=== PATIENT | female | born 1990 | race Caucasian/White ===

== ENCOUNTER 2017-08-20 14:13 | Outpatient (CLI) | payer OTHER ==
--- NOTE | 2017-08-20 16:20 | Non Stress Test Report ---
Non Stress Test Datetime Report Generated by CPN: 08/20/2017 16:20 DEMOGRAPHIC EGA NST: 33.4 INDICATION Indication for Study: Other Indication for Study (NST) Other: sent from office VITAL SIGNS Pulse - NST: 100 RESP - NST: 12 NBPSYS NST: 126 NBPDIA NST: 65 MONITORING Monitor Explained: Monitor Explained; Test Explained; Patient Verbalized Understanding Time on Monitor: 08/20/2017 14:27 Time off Monitor: 08/20/2017 15:59 NST Duration: 92 NST INTERVENTIONS NST Interventions: PO Hydration; Reposition Patient Physician Notified NST: Dr. Dunlap BABY A: [id number] BABY A Movement : Present Contraction Frequency : 0 FHR Baseline : 135 Accelerations : 10X10 Decelerations : None Variability : Moderate 6-25bpm NST Review: Meets Criteria for Reactive NST NST Review and Verified By : KRISH Pompa NST Results: Reactive NST REPORT Report Trigger: Send Report
== END 2017-08-20 16:07 | disposition home or self-care (01) ==
LOC: LC 14:13
PROVIDERS: ATTEND Obstetrics & Gynecology
PROC: 4A1HXCZ Monitoring of Products of Conception, Cardiac Rate, External Approach (ICD-10-PCS; principal; 2017-08-20)
DX: Z34.93 Encounter for supervision of normal pregnancy, unspecified, third trimester (principal)
CPT/HCPCS: 59025

== ENCOUNTER 2017-09-21 09:01 | Outpatient (CLI) | payer OTHER ==
[2017-09-21 10:24] LABS: ABSOLUTE EOSINOPHILS # (AUTO) 0.1 10^3/uL (0.0-0.6); ABSOLUTE LYMPHOCYTES (AUTO) 1.7 10^3/uL (0.5-4.7); ABSOLUTE MONOCYTES (AUTO) 0.6 10^3/uL (0.1-1.4); ABSOLUTE NEUT (AUTO) 5.7 10^3/uL (1.7-8.2); BASOPHILS % (AUTO) 0.3 % (0-2); EOSINOPHILS % (AUTO) 0.6 % (0-6); HEMATOCRIT 38.2 % (36.0-47.0); HEMOGLOBIN 12.9 g/dL (12.0-15.5); LYMPHOCYTES % (AUTO) 21.2 % (13-45); MEAN CORPUSCULAR HEMOGLOBIN 30.6 pg (27.0-33.4); MEAN CORPUSCULAR HGB CONC 33.9 g/dL (32.0-36.0); MEAN CORPUSCULAR VOLUME 90 fl (80-97); PLATELET COUNT 151 10^3/uL (150-450); RED BLOOD COUNT 4.23 10^6/uL (3.72-5.28); RED CELL DISTRIBUTION WIDTH 13.5 % (11.5-14.0); SEGMENTED NEUTROPHILS % (AUTO) 70.9 % (42-78); TOTAL CELLS COUNTED % (AUTO) 100 %
[2017-09-21 10:32] LABS: ALANINE AMINOTRANSFERASE 24 U/L (9-52); ALBUMIN 3.5 g/dL (3.5-5.0); ALKALINE PHOSPHATASE 117 U/L (38-126); ANION GAP 9 (5-19); ASPARTATE AMINO TRANSFERASE 21 U/L (14-36); BILIRUBIN,DIRECT 0.1 mg/dL (0.0-0.4); BILIRUBIN,TOTAL 0.2 mg/dL (0.2-1.3); BLOOD UREA NITROGEN 9 mg/dL (7-20); CALCIUM 9.6 mg/dL (8.4-10.2); CARBON DIOXIDE 27 mmol/L (22-30); CHLORIDE 102 mmol/L (98-107); GLUCOSE 120 mg/dL (75-110); LDH 397 U/L (313-618); POTASSIUM 3.8 mmol/L (3.6-5.0); SODIUM 138.1 mmol/L (137-145); TOTAL PROTEIN 6.1 g/dL (6.3-8.2); URIC ACID 4.1 mg/dL (2.5-6.2)
[2017-09-21 10:39] LABS: APPEARANCE,URINE CLEAR; BILIRUBIN,URINE NEGATIVE (NEGATIVE); COLOR,URINE STRAW; GLUCOSE, URINE NEGATIVE (NEGATIVE); KETONES,URINE NEGATIVE (NEGATIVE); LEUKOCYTE ESTERASE,URINE NEGATIVE (NEGATIVE); NITRITE,URINE NEGATIVE (NEGATIVE); PROTEIN,URINE NEGATIVE (NEGATIVE); URINE SPECIFIC GRAVITY 1.003; UROBILINOGEN,URINE NEGATIVE mg/dL (<2.0)
--- NOTE | 2017-09-21 10:46 | Non Stress Test Report ---
Non Stress Test Datetime Report Generated by CPN: 09/21/2017 10:46 DEMOGRAPHIC EGA NST: 38.1 INDICATION Indication for Study: Gestational Hypertension; Ordered by Provider Indication for Study (NST) Other: VS PRE-ECLAMPSIA VITAL SIGNS Temperature - NST: 98.1 Pulse - NST: 78 NBPSYS NST: 115 NBPDIA NST: 68 MONITORING Monitor Explained: Monitor Explained; Test Explained; Patient Verbalized Understanding Time on Monitor: 09/21/2017 09:09 Time off Monitor: 09/21/2017 09:31 NST Duration: 22 NST INTERVENTIONS NST Interventions: PO Hydration; Reposition Patient Physician Notified NST: J. Valladares, CNM BABY A: [id number] BABY A Contraction Frequency : NONE FHR Baseline : 135 Accelerations : 15X15 Decelerations : None Variability : Moderate 6-25bpm NST Review: Meets Criteria for Reactive NST NST Review and Verified By : Adalberto Bustamante, RN NST Results: Reactive NST REPORT Report Trigger: Send Report
[2017-09-21 11:06] LABS: URINE AMPHETAMINES SCREEN NEGATIVE; URINE BARBITURATES SCREEN NEGATIVE; URINE BENZODIAZEPINES SCREEN NEGATIVE; URINE COCAINE SCREEN NEGATIVE; URINE MARIJUANA (THC) SCREEN NEGATIVE; URINE METHADONE SCREEN NEGATIVE; URINE PHENCYCLIDINE SCREEN NEGATIVE
[2017-09-21 11:11] LABS: UR PRO/CREAT RATIO RESULT 0.7 mg/mg (0.0-0.2); URINE CREATININE 21.1 mg/dL (16-327); URINE PROTEIN 15.4 mg/dL (<12)
[2017-09-22 13:42] LABS: URINE PROTEIN 16.8 mg/dL (<12)
[2017-09-22 13:44] LABS: 24 HOUR URINE PROTEIN RESULT 376 mg/day (42-225)
== END 2017-09-21 11:27 | disposition home or self-care (01) ==
LOC: LC 09:01
PROVIDERS: ATTEND Obstetrics & Gynecology
PROC: 4A1HXCZ Monitoring of Products of Conception, Cardiac Rate, External Approach (ICD-10-PCS; principal; 2017-09-21)
DX: O13.3 Gestational [pregnancy-induced] hypertension without significant proteinuria, third trimester (principal); Z3A.38 38 weeks gestation of pregnancy
CPT/HCPCS: 36415; 59025; 80053; 80307; 81001; 82570; 83615; 84156; 84550; 85025

== ENCOUNTER 2017-09-29 14:47 | Outpatient (CLI) | payer OTHER ==
--- NOTE | 2017-09-29 15:47 | Non Stress Test Report ---
Non Stress Test Datetime Report Generated by CPN: 09/29/2017 15:46 DEMOGRAPHIC EGA NST: 39.2 INDICATION Indication for Study: Ordered by Provider MONITORING Monitor Explained: Monitor Explained; Test Explained; Patient Verbalized Understanding Time on Monitor: 09/29/2017 15:02 NST INTERVENTIONS NST Interventions: None Physician Notified NST: C Walden, CNM BABY A: [id number] BABY A Movement : Present Contraction Frequency : 0 FHR Baseline : 130 Accelerations : 15X15 Decelerations : None Variability : Moderate 6-25bpm NST Review: Meets Criteria for Reactive NST NST Review and Verified By : Laura Tim RNC NST Results: Reactive NST REPORT Report Trigger: Send Report
== END 2017-09-29 15:46 | disposition home or self-care (01) ==
LOC: LC 14:47
PROVIDERS: ATTEND Obstetrics & Gynecology
PROC: 4A1HXCZ Monitoring of Products of Conception, Cardiac Rate, External Approach (ICD-10-PCS; principal; 2017-09-29)
DX: Z34.93 Encounter for supervision of normal pregnancy, unspecified, third trimester (principal)
CPT/HCPCS: 59025

== ENCOUNTER 2017-09-29 19:35 | Inpatient (IN) | payer OTHER ==
[2017-09-29 20:01] LABS: APPEARANCE,URINE SLIGHTLY-CLOUDY; BILIRUBIN,URINE NEGATIVE (NEGATIVE); COLOR,URINE YELLOW; GLUCOSE, URINE NEGATIVE (NEGATIVE); KETONES,URINE NEGATIVE (NEGATIVE); LEUKOCYTE ESTERASE,URINE NEGATIVE (NEGATIVE); NITRITE,URINE NEGATIVE (NEGATIVE); PROTEIN,URINE NEGATIVE (NEGATIVE); URINE SPECIFIC GRAVITY 1.029; UROBILINOGEN,URINE NEGATIVE mg/dL (<2.0)
[2017-09-29] MEDS ORDERED: DINOPROSTONE 10 MG VAGINAL INSERT.SR PV ONE (20:22)
[2017-09-29 20:23] LABS: URINE AMPHETAMINES SCREEN NEGATIVE; URINE BARBITURATES SCREEN NEGATIVE; URINE BENZODIAZEPINES SCREEN NEGATIVE; URINE COCAINE SCREEN NEGATIVE; URINE MARIJUANA (THC) SCREEN NEGATIVE; URINE METHADONE SCREEN NEGATIVE; URINE PHENCYCLIDINE SCREEN NEGATIVE
[2017-09-29 20:29] LABS: ABSOLUTE LYMPHOCYTES (AUTO) 2.6 10^3/uL (0.5-4.7); ABSOLUTE MONOCYTES (AUTO) 0.8 10^3/uL (0.1-1.4); ABSOLUTE NEUT (AUTO) 6.9 10^3/uL (1.7-8.2); BASOPHILS % (AUTO) 0.3 % (0-2); EOSINOPHILS % (AUTO) 0.5 % (0-6); HEMATOCRIT 36.9 % (36.0-47.0); HEMOGLOBIN 12.9 g/dL (12.0-15.5); LYMPHOCYTES % (AUTO) 24.7 % (13-45); MEAN CORPUSCULAR VOLUME 89 fl (80-97); PLATELET COUNT 169 10^3/uL (150-450); RED BLOOD COUNT 4.17 10^6/uL (3.72-5.28); RED CELL DISTRIBUTION WIDTH 13.2 % (11.5-14.0); SEGMENTED NEUTROPHILS % (AUTO) 66.5 % (42-78); TOTAL CELLS COUNTED % (AUTO) 100 %; WHITE BLOOD COUNT 10.3 10^3/uL (4.0-10.5)
[2017-09-29] MEDS ORDERED: DINOPROSTONE 10 MG VAGINAL INSERT.SR ONE (20:51)
[2017-09-30] MEDS ORDERED: OXYTOCIN/NORMAL SALINE 20 UNIT/1,000 ML RTUINJ IV PRN ×2 (08:36→17:10)
[2017-09-30] MEDS ORDERED: MISOPROSTOL 0.2 MG TABLET ONE (09:21)
[2017-09-30] MEDS ORDERED: LIDOCAINE 1% INJ-PF (10 MG/ML) 30 ML SDV ONE (09:21)
[2017-09-30] MEDS ORDERED: OXYTOCIN/NORMAL SALINE 20 UNIT/1,000 ML RTUINJ ONE (09:21)
--- NOTE | 2017-09-30 10:36 | Admission Physical ---
Datetime Report Generated by CPN: 09/30/2017 10:36 CURRENT ADMISSION Hx Assessment: The History has been Reviewed and is Current Chief Complaint: Scheduled Induction of Labor Indication for Induction: Gestational HTN Admit Impression : Term, Intrauterine Admit Plan: Admit to Unit; Initiate Labor Induction Protocol ALLERGIES Medication Allergies: No Medication Allergies: No Known Drug Allergies (09/29/2017) Latex: No Latex Allergies Food Allergies: none OBSTETRICAL HISTORY EDC: 10/04/2017 00:00 : 1 Para: 0 Gestational Diabetes: No Rh Sensitization: No Incompetent Cervix: No OSBALDO: No Infertility: No ART Treatment: No Uterine Anomaly: No IUGR: No Hx Previous C/S: No Macrosomia: No Hx Loss/Stillborn: No PIH: No Hx : No Placenta Previa/Abruption: No Depression/PP Depression: No PTL/PROM: No Post Hemorrhage: No Current Procedures: Ultrasound; NST Obstetrical History Comments: g1- current IOL for GHTN SEE RECORDS Alcohol: No Marijuana : No Cocaine: No Other Illicit Drugs: No Cigarettes: Never Smoker. [id number] MEDICAL HISTORY Diabetes: No Blood Transfusion: No Pulmonary Disease (Asthma, TB): No Breast Disease: No Hypertension: Yes Reporter Anchor Surgery: No Heart Disease: No Hosp/Surgery: No Autoimmune Disorder: No Anesthetic Complications: No Kidney Disease: No Abnormal Pap Smear: No Neuro/Epilepsy: No Psychiatric Disorders: No Other Medical Diseases: No Hepatitis/Liver Disease: No Significant Family History: No Varicosities/Phlebitis: No Trauma/Violence : No Thyroid Dysfunction: No INFECTIOUS HISTORY Gonorrhea: No Genital Herpes: No Chlamydia: No Tuberculosis: No Syphilis: No Hepatitis: No HIV/AIDS Exposure: No Rash or Viral Illness: No HPV: No PHYSICAL EXAM General: Normal HEENT: Deferred Neurologic: Deferred Thyroid: Normal Heart: Normal Lungs: Normal Breast: Deferred Back: Normal Abdomen: Normal Genitourinary Exam: Normal Extremities: Normal DTRs: Normal Pelvic Type: Adequate Vital Signs: Reviewed FETUS A EGA: 39.3 Monitoring: External US FHR- Baseline: 150 Variability: Moderate 6-25bpm Accelerations: 15X15 Decelerations: None Admit Comment: Admit to LD @ 39.1 for IOL Gestational hypertension, closed on admission, cevidil placed PLANS FOR LABOR AND DELIVERY Labor and Delivery: None Pain Management: Medications; Epidural Feeding Preference: Breast Circumcision: Yes INFORMED CONSENT Assignment: Ismael Dunlap MD Signature: with User ID: [email or web address] : with User ID: [email or web address]
--- NOTE | 2017-09-30 10:38 | L&D Progress Notes ---
PROGRESS NOTES Datetime Report Generated by CPN: 09/30/2017 10:38 PROGRESS NOTE Impression: Reassuring Heart Rate Plan: Induction Vital Signs : Reviewed; Within Normal Limits Comment: Cat 1 strip, irregular uc's, BP normal, POC discussed FETUS A : 39.1 SIGNATURE SIGNATURE: 10,[id number];14,[id number];13,[id number] SIGNATURE: ,[id number];14,[id number] SIGNATURE: [id number] SIGNATURE: [id number] SIGNATURE: 14,[id number] Assignment: Ismael Dunlap MD Signature: with User ID: [email or web address] : with User ID: [email or web address]
--- NOTE | 2017-09-30 13:28 | L&D Progress Notes ---
PROGRESS NOTES Datetime Report Generated by CPN: 09/30/2017 13:27 PROGRESS NOTE Impression: Reassuring Heart Rate Plan: Continue Present Management; Induction Informed Consent Obtained: Vaginal Delivery Vital Signs : Reviewed; Within Normal Limits Comment: Cat 1 strip, irregular uc's, comfortable MEMBRANES Membranes: Intact FETUS A FHR - Baseline: 130 Monitoring: External US Variability: Moderate 6-25bpm Accelerations: 15X15 Decelerations: None FETUS C SIGNATURE: [id number];14,[id number];10,[id number] Assignment: Ismael Dunlap MD Signature: with User ID: [email or web address] : with User ID: [email or web address]
--- NOTE | 2017-09-30 16:31 | L&D Progress Notes ---
PROGRESS NOTES Datetime Report Generated by CPN: 09/30/2017 16:31 PROGRESS NOTE Impression: Reassuring Heart Rate Plan: Continue Present Management; Induction Informed Consent Obtained: Vaginal Delivery Vital Signs : Reviewed; Within Normal Limits Comment: Cat 1 strip, rare late with moderate variability, resolved, irreg uc's, pt starting to feel uc's, Dr. Dunlap on unit and will re-evaluate pt later in the afternoon MEMBRANES Membranes: Intact FETUS A FHR - Baseline: 160 Monitoring: External US Variability: Moderate 6-25bpm Accelerations: 15X15 Decelerations: None FETUS C SIGNATURE: [id number];14,[id number];13,[id number] Assignment: Ismael Dunlap MD Signature: with User ID: [email or web address] : with User ID: [email or web address]
[2017-09-30] MEDS ORDERED: DINOPROSTONE 10 MG VAGINAL INSERT.SR PV PRN (17:10)
[2017-09-30] MEDS ORDERED: DINOPROSTONE 10 MG VAGINAL INSERT.SR ONE (19:34)
[2017-09-30] MEDS ORDERED: RINGERS SOLUTION,LACTATED 1,000 ML IV PRN (21:49)
--- NOTE | 2017-09-30 22:45 | L&D Progress Notes ---
PROGRESS NOTES Datetime Report Generated by CPN: 09/30/2017 22:45 PROGRESS NOTE Impression Other: small progress today Plan: Cervical Ripening Informed Consent Obtained: Risks, Benefits and Alternatives Discussed Informed Consent Obtained- Other: discussed options Comment: She would like to ripen the cervix and try the pitocin again in the am. Poly diagnosed by single pocket. VAGINAL EXAM Dilatation: 2 Effacement: 50 Station: -2 FETUS A FHR - Baseline: 120 Variability: Moderate 6-25bpm FHR Category: Category I FETUS C SIGNATURE: [id number];14,[id number];10,[id number] Signature: with User ID: [email or web address]
--- NOTE | 2017-10-01 07:04 | DISCHARGE SUMMARY E ---
Discharge Summary NAME: GERMAIN GREEN : 1990 AGE: 27Y ADMITTED: 09/29/2017 DISCHARGED: 10/01/2017 FINAL DIAGNOSIS: . HISTORY: The patient is a 27-year-old female, 1. She is at 39 weeks admitted for induction of labor for some sporadic elevated blood pressures and polyhydramnios by an 8 cm pocket of fluid on ultrasound. Her GENE is 15 overall. The patient was admitted and underwent Cervidil and Pitocin and had very little change. The Cervidil was repeated. Now after midnight, she and her wished to go home. We discussed continuing the induction and trying the Pitocin again in the morning; however, she is frustrated with the induction process and does not wish to continue it. Her blood pressure looks good. Baby looks good with a reactive NST. She is having only occasional contractions with the Cervidil. After discussing all options, she feels the best course of action is to go home and await natural labor. This appears to be a safe option as her blood pressure is fine and the baby is reactive. Her condition is stable. Her due date is this Thursday. ASSESSMENT: at term. We will stop the Cervidil, allow reactive tracing afterwards, ensure blood pressure looks fine, and discharge her to home with followup this Thursday in the office with an NST. We have given her labor precautions. We also instructed her on kick counts. DICTATING PHYSICIAN: OJCELYN VARGAS M.D. [id number] PHY#: [id number] ID: [id number] JOB#: [id number] ACCT: [id number] cc:JOCELYN VARGAS M.D. FELY SALMON M.D. >
== END 2017-10-01 02:03 | disposition home or self-care (01) | DRG 782 ==
LOC: LR 19:35
PROVIDERS: ADMIT Obstetrics & Gynecology; ATTEND Specialist
PROC: 3E0P7VZ Introduction of Hormone into Female Reproductive, Via Natural or Artificial Opening (ICD-10-PCS; principal; 2017-09-29)
PROC: 3E033VJ Introduction of Other Hormone into Peripheral Vein, Percutaneous Approach (ICD-10-PCS; 2017-09-29)
PROC: 4A1HXCZ Monitoring of Products of Conception, Cardiac Rate, External Approach (ICD-10-PCS; 2017-09-29)
DX: O13.3 Gestational [pregnancy-induced] hypertension without significant proteinuria, third trimester (principal); O40.3XX0 Polyhydramnios, third trimester, not applicable or unspecified; O61.0 Failed medical induction of labor; Z3A.39 39 weeks gestation of pregnancy
CPT/HCPCS: 36415; 80307; 81005; 85025; 86592; 86850; 86900; 86901; J2590; J3490

== ENCOUNTER 2017-10-01 13:47 | Inpatient (IN) | payer OTHER ==
[2017-10-01] MEDS ORDERED: RINGERS SOLUTION,LACTATED 300 ML IV ONE (14:00)
[2017-10-01] MEDS ORDERED: RINGERS SOLUTION,LACTATED 1,000 ML IV PRN (14:00)
[2017-10-01] MEDS ORDERED: OXYTOCIN/NORMAL SALINE 20 UNIT/1,000 ML RTUINJ IV PRN (14:00)
[2017-10-01 14:42] LABS: ABSOLUTE EOSINOPHILS # (AUTO) 0.1 10^3/uL (0.0-0.6); ABSOLUTE LYMPHOCYTES (AUTO) 1.9 10^3/uL (0.5-4.7); ABSOLUTE MONOCYTES (AUTO) 0.8 10^3/uL (0.1-1.4); BASOPHILS % (AUTO) 0.3 % (0-2); EOSINOPHILS % (AUTO) 0.6 % (0-6); HEMATOCRIT 37.8 % (36.0-47.0); HEMOGLOBIN 13.1 g/dL (12.0-15.5); LYMPHOCYTES % (AUTO) 22.1 % (13-45); MEAN CORPUSCULAR HEMOGLOBIN 30.6 pg (27.0-33.4); MEAN CORPUSCULAR HGB CONC 34.5 g/dL (32.0-36.0); MEAN CORPUSCULAR VOLUME 89 fl (80-97); MONOCYTES % (AUTO) 9.4 % (3-13); PLATELET COUNT 160 10^3/uL (150-450); RED BLOOD COUNT 4.26 10^6/uL (3.72-5.28); RED CELL DISTRIBUTION WIDTH 13.4 % (11.5-14.0); SEGMENTED NEUTROPHILS % (AUTO) 67.6 % (42-78); TOTAL CELLS COUNTED % (AUTO) 100 %; WHITE BLOOD COUNT 8.8 10^3/uL (4.0-10.5)
[2017-10-01 14:44] LABS: APPEARANCE,URINE SLIGHTLY-CLOUDY; BILIRUBIN,URINE NEGATIVE (NEGATIVE); COLOR,URINE YELLOW; GLUCOSE, URINE NEGATIVE (NEGATIVE); KETONES,URINE NEGATIVE (NEGATIVE); LEUKOCYTE ESTERASE,URINE SMALL (NEGATIVE); NITRITE,URINE NEGATIVE (NEGATIVE); PROTEIN,URINE NEGATIVE (NEGATIVE); URINE SPECIFIC GRAVITY 1.017; UROBILINOGEN,URINE NEGATIVE mg/dL (<2.0)
[2017-10-01] MEDS ORDERED: MISOPROSTOL 0.2 MG TABLET ONE (14:52)
[2017-10-01] MEDS ORDERED: LIDOCAINE 1% INJ-PF (10 MG/ML) 30 ML SDV ONE (14:53)
[2017-10-01] MEDS ORDERED: OXYTOCIN/NORMAL SALINE 20 UNIT/1,000 ML RTUINJ ONE (14:53)
--- NOTE | 2017-10-01 14:54 | L&D Progress Notes ---
PROGRESS NOTES Datetime Report Generated by CPN: 10/01/2017 14:53 PROGRESS NOTE Impression: Reassuring Heart Rate Procedures- Other: Cooks cath placed Plan: Continue Present Management Informed Consent Obtained: Induction of Labor Vital Signs : Reviewed Comment: cooks cath placed without difficulty, 80 ml fluid in both balloons. VAGINAL EXAM Dilatation: 3 Effacement: 50 Station: -1 Contractions: irregular MEMBRANES Membranes: Intact FETUS A FHR - Baseline: 145 Monitoring: External US Variability: Moderate 6-25bpm Accelerations: 15X15 Decelerations: None FHR Category: Category I SIGNATURE SIGNATURE: 10,[id number];14,[id number];13,[id number] Assignment: Nayeli Magana MD Signature: with User ID: [email or web address] : with User ID: [email or web address]
[2017-10-01 14:56] LABS: ALANINE AMINOTRANSFERASE 28 U/L (9-52); ALBUMIN 3.4 g/dL (3.5-5.0); ALKALINE PHOSPHATASE 139 U/L (38-126); ANION GAP 8 (5-19); ASPARTATE AMINO TRANSFERASE 23 U/L (14-36); BILIRUBIN,DIRECT 0.2 mg/dL (0.0-0.4); BILIRUBIN,TOTAL 0.5 mg/dL (0.2-1.3); BLOOD UREA NITROGEN 10 mg/dL (7-20); CALCIUM 9.5 mg/dL (8.4-10.2); CARBON DIOXIDE 24 mmol/L (22-30); CHLORIDE 106 mmol/L (98-107); GLUCOSE 80 mg/dL (75-110); LDH 399 U/L (313-618); SODIUM 138.4 mmol/L (137-145); TOTAL PROTEIN 6.2 g/dL (6.3-8.2); URIC ACID 4.3 mg/dL (2.5-6.2)
--- NOTE | 2017-10-01 14:56 | Admission Physical ---
Datetime Report Generated by CPN: 10/01/2017 14:56 CURRENT ADMISSION Hx Assessment: The History has been Reviewed and is Current Chief Complaint: Scheduled Induction of Labor Indication for Induction: Eclampsia-Mild; Polyhydramnios Admit Impression : Term, Intrauterine ; No Active Labor; Intact Membranes; Induction of Labor Admit Plan: Admit to Unit; Initiate Labor Induction Protocol ALLERGIES Medication Allergies: No Medication Allergies: No Known Drug Allergies (10/01/2017) Latex: No Latex Allergies Food Allergies: none OBSTETRICAL HISTORY EDC: 10/04/2017 00:00 : 1 Para: 0 Gestational Diabetes: No Rh Sensitization: No Incompetent Cervix: No OSBALDO: No Infertility: No ART Treatment: No Uterine Anomaly: No IUGR: No Hx Previous C/S: No Macrosomia: No Hx Loss/Stillborn: No PIH: No Hx : No Placenta Previa/Abruption: No Depression/PP Depression: No PTL/PROM: No Post Hemorrhage: No Current Procedures: Ultrasound; NST Obstetrical History Comments: g1- current IOL for GHTN SEE RECORDS Alcohol: No Marijuana : No Cocaine: No Other Illicit Drugs: No Cigarettes: Never Smoker. [id number] MEDICAL HISTORY Diabetes: No Blood Transfusion: No Pulmonary Disease (Asthma, TB): No Breast Disease: No Hypertension: Yes Software Qa Manager Surgery: No Heart Disease: No Hosp/Surgery: No Autoimmune Disorder: No Anesthetic Complications: No Kidney Disease: No Abnormal Pap Smear: No Neuro/Epilepsy: No Psychiatric Disorders: No Other Medical Diseases: No Hepatitis/Liver Disease: No Significant Family History: No Varicosities/Phlebitis: No Trauma/Violence : No Thyroid Dysfunction: No INFECTIOUS HISTORY Gonorrhea: No Genital Herpes: No Chlamydia: No Tuberculosis: No Syphilis: No Hepatitis: No HIV/AIDS Exposure: No Rash or Viral Illness: No HPV: No PHYSICAL EXAM General: Normal HEENT: Normal Neurologic: Normal Thyroid: Deferred Heart: Normal Lungs: Normal Breast: Deferred Back: Normal Abdomen: Normal Genitourinary Exam: Normal Extremities: Normal DTRs: Normal Pelvic Type: Adequate Vital Signs: Reviewed VAGINAL EXAM Dilatation: 3 Effacement: 50 Station: -1 Contraction Comments: irregular MEMBRANES Membranes: Intact FETUS A EGA: 39.3 Monitoring: External US FHR- Baseline: 145 Variability: Moderate 6-25bpm Accelerations: 15X15 Decelerations: None FHR Category: Category I Estimated Weight (gm): 3318 Presentation: Vertex Admit Comment: 27yo at 39+4ega presents for IOL for GHTN vs PreE (24 hr UTP was greater than 300mg) and polyhydramnios (based on SDP greater than 8cm). GBS negative. She was admitted for IOL on 09/29 and given cervidil over night and then meds during the day but cvx obtained diltation of 2cm. Cooks catheter never placed and patient was given 2nd cervidil. Pt desires to leave at approx 2am because she needed a break. She was discharge by the prior provider. Patient returned today and desires to proced with IOL with pitocin and Cooks catheter. Anticipate . EFW 3318 (7#6oz on 09/17) PLANS FOR LABOR AND DELIVERY Labor and Delivery: None Pain Management: Medications; Epidural Feeding Preference: Breast Circumcision: Yes INFORMED CONSENT Informed Consent Obtained: Induction of Labor Informed Consent Obtained- Other: discussed options Assignment: Ismael Dunlap MD Signature: with User ID: Reagan : with User ID: Reagan
[2017-10-01 15:02] LABS: URINE AMPHETAMINES SCREEN NEGATIVE; URINE BARBITURATES SCREEN NEGATIVE; URINE BENZODIAZEPINES SCREEN NEGATIVE; URINE COCAINE SCREEN NEGATIVE; URINE MARIJUANA (THC) SCREEN NEGATIVE; URINE METHADONE SCREEN NEGATIVE; URINE PHENCYCLIDINE SCREEN NEGATIVE
--- NOTE | 2017-10-01 18:11 | L&D Progress Notes ---
PROGRESS NOTES Datetime Report Generated by CPN: 10/01/2017 18:10 PROGRESS NOTE Impression: Normal Progression of Labor Procedures: Sterile Vag Exam Procedures- Other: Cookcaroline removed Plan: Continue Present Management; Induction Informed Consent Obtained: Vaginal Delivery; Induction of Labor; Risks, Benefits and Alternatives Discussed Vital Signs : Reviewed Comment: IOL for GHTN vs PreE but with 24 hour UTP greater than 300mg, polyhydramnios. Mild range BPs noted x 2 yesterday during IOL process. BPs wnl since admission today for IOL. Cvx evaluation done with cookcaroline completely out of cervix and in vagina. Cvx 5-6/75/-2. Will continue with peanut ball for now. Re-eval in 2-3 hours and assess for AROM. Attempt to get pattern improved with contractions and increase pitocin. Reassuring FWB. Pt doing well. MEMBRANES Membranes: Intact FETUS A Monitoring: External US FETUS C SIGNATURE: [id number] SIGNATURE: [id number] Signature: with User ID: [email or web address]
[2017-10-01] MEDS ORDERED: FENTANYL CITRATE INJ/PF 100 MCG/2 ML AMPUL ONE (22:15)
[2017-10-01] MEDS ORDERED: EPHEDRINE SULFATE INJ 50 MG/1 ML AMPULE ONE (22:15)
[2017-10-01] MEDS ORDERED: FENTANYL/BUPIVACAINE/NS/PF 300 MCG/150 ML RTUINJ EPI ONE (22:15)
[2017-10-01] MEDS ORDERED: BUPIVACAINE HCL 0.25 % INJ/PF (2.5 MG/1 ML) 30 ML VIAL ONE (22:16)
[2017-10-02] MEDS ORDERED: AMPICILLIN SOD/SULBACTAM 3 GM VIAL ONE (01:17)
[2017-10-02] MEDS ORDERED: PROMETHAZINE HCL 25 MG TABLET PO PRN (02:36)
[2017-10-02] MEDS ORDERED: DIBUCAINE 1% OINTMENT 28 GM TP PRN (02:36)
[2017-10-02] MEDS ORDERED: PSEUDOEPHEDRINE HCL 30 MG TABLET PO PRN (02:36)
[2017-10-02] MEDS ORDERED: MISOPROSTOL 0.2 MG TABLET PR PRN (02:36)
[2017-10-02] MEDS ORDERED: PROMETHAZINE HCL 25 MG SUPP.RECT PR PRN (02:36)
[2017-10-02] MEDS ORDERED: MEASLES,MUMPS&RUBELLA VACC/PF 0.5 ML VIAL SUBCUT PRN (02:36)
[2017-10-02] MEDS ORDERED: GLYCERIN/WITCH HAZEL LEAF 1 EACH MED..PAD TP PRN (02:36)
[2017-10-02] MEDS ORDERED: PROMETHAZINE HCL INJ 25 MG/1 ML VIAL IV PRN (02:36)
[2017-10-02] MEDS ORDERED: OXYTOCIN/NORMAL SALINE 20 UNIT/1,000 ML RTUINJ IV PRN (02:36)
[2017-10-02] MEDS ORDERED: BENZOCAINE/MENTHOL AEROSOL SPRAY 56 ML TOP PRN (02:36)
[2017-10-02] MEDS ORDERED: DIPH/PERTUSS(ACELL)/TETANUS VAC/PF 0.5 ML SYR (>=10YO) IM PRN (02:36)
[2017-10-02] MEDS ORDERED: ACETAMINOPHEN WITH CODEINE #3 TABLET PO PRN ×2 (02:36)
[2017-10-02] MEDS ORDERED: ZOLPIDEM TARTRATE 5 MG TABLET PO PRN (02:36)
[2017-10-02] MEDS ORDERED: DIPHENHYDRAMINE HCL 25 MG CAPSULE PO PRN (02:36)
[2017-10-02] MEDS ORDERED: MAGNESIUM HYDROXIDE SUSP 30 ML UDCUP PO PRN (02:36)
[2017-10-02] MEDS ORDERED: NA PHOS,M-B/NA PHOS,DI-BA (ADULT) 133 ML ENEMA PR PRN (02:36)
[2017-10-02] MEDS ORDERED: ACETAMINOPHEN 325 MG TABLET PO PRN (02:36)
[2017-10-02] MEDS ORDERED: IBUPROFEN 800 MG TABLET ONE (04:08)
--- NOTE | 2017-10-02 04:40 | Delivery Summary ---
Del Sum A-C Datetime Report Generated by CPN: 10/02/2017 04:39 DELIVERY PERSONNEL DELIVERY PERSONNEL: [id number] Delivery Doctor:: Nayeli Magana MD Anesthesiologist:: Kathy Sears MD Labor and Delivery Nurse:: Winifred Mujica RNregional vice president life sales Nurse:: Radha Snowden RN Student Observers:: Blanquita Allen Pad Making Machine Operator/DIDACTIC INSTRUCTOR: Yelena Aguilar, ST MATERNAL INFORMATION Delivery Anesthesia: Epidural Medications After Delivery: Pitocin Drip 20 Units/1000ml NSS; Other-Please Comment Meds After Delivery Comment: cytotec 1000mcg given by provider Estimated Blood Loss (ml): 432 Maternal Complications: Maternal Fever Provider Comments: VMI delivered in NED presentation. No nuchal cord. Shoulders and body delivered without difficulty. Cord doubly clamped and cut. Placenta delivered intact spontaneously. FF at U. 2nd degree perineal laceration repaired. Good hemostasis. Cytotec 1000mcg placed per rectum. Mother and baby stable upon provider leaving the room. LABOR SUMMARY EDC: 10/04/2017 00:00 No. Babies in Womb: 1 Attempted: No Labor Anesthesia: Epidural LABOR INFORMATION Reason for Induction: Gestational Hypertension; Polyhydramnios Onset of Labor: 10/01/2017 20:47 Complete Dilatation: 10/02/2017 00:15 Cervical Ripening Agents: Maldonado Balloon Other Ripening Agents: Cooks/Pitocin Oxytocin: Induction Group B Beta Strep: negative Steroids Given: None Reason Steroids Not Administered: Not Applicable MEMBRANES Membranes Rupture Method: Spontaneous Rupture of Membranes: 10/01/2017 19:06 Length of Rupture (hr): 6.75 Amniotic Fluid Color: Light Meconium Amniotic Fluid Amount: Large Amniotic Fluid Odor: Normal STAGES OF LABOR Stage 1 hr: 3 Stage 1 min: 28 Stage 2 hr: 1 Stage 2 min: 36 Stage 3 hr: 0 Stage 3 min: 4 Total Time in Labor hr: 5 Total Time in Labor min: 8 VAGINAL DELIVERY Episiotomy: None Laceration #1: Vaginal Laceration Extension #1: Second Degree Laceration Repair: Yes Sponge Count Correct: Yes Sharps Count Correct: Yes CSECTION DELIVERY Primary Indication: N/A Secondary Indication: N/A CSection Incidence: N/A Labor: N/A Elective: N/A CSection Incision: N/A BABY A INFORMATION Delivery Date/Time: 10/02/2017 01:51 Method of Delivery: Vaginal Born in Route : No : N/A Forceps: N/A Vacuum Extraction: N/A Shoulder Dystocia : No PRESENTATION/POSITION BABY A Presentation: Cephalic Cephalic Presentation: Vertex Vertex Position: Right Occipital Anterior Breech Presentation: N/A PLACENTA INFORMATION BABY A Placenta Delivery Time : 10/02/2017 01:55 Placenta Method of Delivery: Spontaneous Placenta Status: Delivered SCORES BABY A Heart Rate 1 min: >100 bpm Resp Effort 1 min: Good Cry Reflex Irritability 1 min: Cough or Sneeze or Pulls Away Muscle Tone 1 min: Some Flexion of Extremities Color 1 min: Blue/Pale Resuscitation Effort 1 min: Tactile Stimulation SCORE 1 MIN: 7 Heart Rate 5 min: >100 bpm Resp Effort 5 min: Good Cry Reflex Irritability 5 min: Cough or Sneeze or Pulls Away Muscle Tone 5 min: Active Motion Color 5 min: Body Hardesty, Extremities Blue SCORE 5 MIN: 9 INFORMATION BABY A Gestational Age at Delivery: 39.5 Gestational Status: Full Term- 39- 40.6 Weeks Infant Outcome : Liveborn Infant Condition : Stable Infant Sex: Male IDENTIFICATION BABY A Verification Date/Time: 10/02/2017 02:40 ID Band Number: [id number] Mother's Name Verified: Yes RN Verifying : B Mujica, RN Additional Verifying Personnel: K Isi, RN WEIGHT/LENGTH BABY A Infant Birthweight (gm): 3700 Weight (lb): 8 Weight (oz): 3 Length (in): 21.00 Length (cm): 53.34 CORD INFORMATION BABY A No. Cord Vessels: 3 Nuchal Cord : N/A Cord Blood Taken: Yes-For Storage (Mom's Blood type +) Infant Suction: Mouth; Pharynx ASSESSMENT BABY A Infant Complications: Multiple Late Decels; Multiple Variable Decels; Polyhydramnios Physical Findings at Delivery: Caput Succedaneum; Molding of the Head Respirations: Appears Normal Skin to Skin: Yes Skin to Skin Time (min): 40 Livestock Counter/ALS Called : No Infant Care By: Laura Snowden Transferred To: Remains with Mother BABY B INFORMATION : N/A SIGNATURES Signature: with User ID: [email or web address]
[2017-10-02] MEDS: IBUPROFEN 800 MG TABLET PO SCH ×3 (05:26→22:16)
[2017-10-02] MEDS ORDERED: AMPICILLIN SOD/SULBACTAM 3 GM VIAL IV SCH (06:00)
--- NOTE | 2017-10-02 08:52 | PDOC PROGRESS REPORT ---
Subjective-OB Progress Note for:: 10/02/17 Physical Exam (OB) Vital Signs: Temp Pulse Resp BP Pulse Ox 100.3 F 98 16 110/62 97 10/02/17 07:28 10/02/17 07:28 10/02/17 07:28 10/02/17 07:28 10/02/17 07:28 Intake & Output 10/01/17 10/02/17 10/03/17 06:59 06:59 06:59 Weight 98.7 kg - Lochia Lochia Amount: Moderate 25-50 ml Lochia Color: Rubra/Red - Abdomen Description: Tender, Soft Hernia Present: No Bowel Sounds: Normoactive Flatus Presence: Absent Stool: No Fundal Description: Firm, Midline Fundal Height: u/u - u/2 Objective-Diagnostic Laboratory: 10/01/17 14:26 10/01/17 14:26 10/01/17 10/01/17 10/01/17 13:41 14:26 14:26 WBC 8.8 RBC 4.26 Hgb 13.1 Hct 37.8 MCV 89 MCH 30.6 MCHC 34.5 RDW 13.4 Plt Count 160 Seg Neutrophils % 67.6 Lymphocytes % 22.1 Monocytes % 9.4 Eosinophils % 0.6 Basophils % 0.3 Absolute Neutrophils 6.0 Absolute Lymphocytes 1.9 Absolute Monocytes 0.8 Absolute Eosinophils 0.1 Absolute Basophils 0.0 Sodium 138.4 Potassium 4.0 Chloride 106 Carbon Dioxide 24 Anion Gap 8 BUN 10 Creatinine 0.58 Est GFR ( Amer) > 60 Est GFR (Non-Af Amer) > 60 Glucose 80 Uric Acid 4.3 Calcium 9.5 Total Bilirubin 0.5 AST 23 ALT 28 Alkaline Phosphatase 139 H Total Protein 6.2 L Albumin 3.4 L Urine Color YELLOW Urine Appearance SLIGHTLY-CLOUDY Urine pH 6.0 Ur Specific [employer] 1.017 Urine Protein NEGATIVE Urine Glucose (UA) NEGATIVE Urine Ketones NEGATIVE Urine Blood LARGE H Urine Nitrite NEGATIVE Ur Leukocyte Esterase SMALL H Urine WBC (Auto) 8 Urine RBC (Auto) 0 Blood Type Antibody Screen 10/01/17 14:26 WBC RBC Hgb Hct MCV MCH MCHC RDW Plt Count Seg Neutrophils % Lymphocytes % Monocytes % Eosinophils % Basophils % Absolute Neutrophils Absolute Lymphocytes Absolute Monocytes Absolute Eosinophils Absolute Basophils Sodium Potassium Chloride Carbon Dioxide Anion Gap BUN Creatinine Est GFR ( Amer) Est GFR (Non-Af Amer) Glucose Uric Acid Calcium Total Bilirubin AST ALT Alkaline Phosphatase Total Protein Albumin Urine Color Urine Appearance Urine pH Ur Specific [employer] Urine Protein Urine Glucose (UA) Urine Ketones Urine Blood Urine Nitrite Ur Leukocyte Esterase Urine WBC (Auto) Urine RBC (Auto) Blood Type A POSITIVE Antibody Screen NEGATIVE
[2017-10-02] MEDS: AMPICILLIN SODIUM/SULBACTAM NA 3 GM in NORMAL SALINE 100 ML IV SCH ×3 (09:12→20:31)
[2017-10-02] MEDS: FAMOTIDINE 20 MG TABLET PO SCH ×2 (09:14→22:17)
[2017-10-02] MEDS: DOCUSATE SODIUM 100 MG CAPSULE PO SCH ×2 (09:14→17:37)
[2017-10-02] MEDS: FERROUS SULFATE 325 MG TABLET PO SCH ×2 (09:15→17:37)
[2017-10-02] MEDS: SENNOSIDES/DOCUSATE 8.6-50 MG 1 EACH TABLET PO SCH (09:15)
[2017-10-02] MEDS: PRENATAL VITAMIN W DHA CAPSULE PO SCH (09:15)
[2017-10-02 09:43] LABS: ABSOLUTE BASOPHILS # (AUTO) 0.2 10^3/uL (0.0-0.2); ABSOLUTE LYMPHOCYTES (AUTO) 1.9 10^3/uL (0.5-4.7); ABSOLUTE MONOCYTES (AUTO) 1.9 10^3/uL (0.1-1.4); ABSOLUTE NEUT (AUTO) 15.9 10^3/uL (1.7-8.2); BASOPHILS % (AUTO) 0.8 % (0-2); EOSINOPHILS % (AUTO) 0.1 % (0-6); HEMATOCRIT 33.8 % (36.0-47.0); HEMOGLOBIN 11.6 g/dL (12.0-15.5); LYMPHOCYTES % (AUTO) 9.5 % (13-45); MEAN CORPUSCULAR HEMOGLOBIN 30.4 pg (27.0-33.4); MEAN CORPUSCULAR HGB CONC 34.2 g/dL (32.0-36.0); MEAN CORPUSCULAR VOLUME 89 fl (80-97); MONOCYTES % (AUTO) 9.5 % (3-13); PLATELET COUNT 136 10^3/uL (150-450); RED CELL DISTRIBUTION WIDTH 13.2 % (11.5-14.0); SEGMENTED NEUTROPHILS % (AUTO) 80.1 % (42-78); TOTAL CELLS COUNTED % (AUTO) 100 %
[2017-10-02 09:44] LABS: WHITE BLOOD COUNT 19.9 10^3/uL (4.0-10.5)
[2017-10-03] MEDS: AMPICILLIN SODIUM/SULBACTAM NA 3 GM in NORMAL SALINE 100 ML IV SCH (03:33)
[2017-10-03] MEDS: IBUPROFEN 800 MG TABLET PO SCH ×3 (05:03→21:03)
[2017-10-03 06:49] LABS: HEMATOCRIT 32.6 % (36.0-47.0); HEMOGLOBIN 11.3 g/dL (12.0-15.5); MEAN CORPUSCULAR HGB CONC 34.8 g/dL (32.0-36.0); MEAN CORPUSCULAR VOLUME 89 fl (80-97); PLATELET COUNT 132 10^3/uL (150-450); RED BLOOD COUNT 3.65 10^6/uL (3.72-5.28); RED CELL DISTRIBUTION WIDTH 13.2 % (11.5-14.0); WHITE BLOOD COUNT 11.5 10^3/uL (4.0-10.5)
[2017-10-03 09:02] LABS: ABSOLUTE EOSINOPHILS # (AUTO) 0.1 10^3/uL (0.0-0.6); ABSOLUTE LYMPHOCYTES (AUTO) 2.2 10^3/uL (0.5-4.7); ABSOLUTE MONOCYTES (AUTO) 0.8 10^3/uL (0.1-1.4); BASOPHILS % (AUTO) 0.3 % (0-2); EOSINOPHILS % (AUTO) 0.9 % (0-6); HEMOGLOBIN 11.6 g/dL (12.0-15.5); LYMPHOCYTES % (AUTO) 19.9 % (13-45); MEAN CORPUSCULAR HEMOGLOBIN 30.8 pg (27.0-33.4); MEAN CORPUSCULAR HGB CONC 34.1 g/dL (32.0-36.0); MEAN CORPUSCULAR VOLUME 90 fl (80-97); MONOCYTES % (AUTO) 7.1 % (3-13); PLATELET COUNT 141 10^3/uL (150-450); RED BLOOD COUNT 3.77 10^6/uL (3.72-5.28); RED CELL DISTRIBUTION WIDTH 13.6 % (11.5-14.0); SEGMENTED NEUTROPHILS % (AUTO) 71.8 % (42-78); TOTAL CELLS COUNTED % (AUTO) 100 %; WHITE BLOOD COUNT 11.1 10^3/uL (4.0-10.5)
[2017-10-03] MEDS: FAMOTIDINE 20 MG TABLET PO SCH ×2 (09:24→21:02)
[2017-10-03] MEDS: SENNOSIDES/DOCUSATE 8.6-50 MG 1 EACH TABLET PO SCH (09:24)
[2017-10-03] MEDS: DOCUSATE SODIUM 100 MG CAPSULE PO SCH ×2 (09:24→18:03)
[2017-10-03] MEDS: PRENATAL VITAMIN W DHA CAPSULE PO SCH (09:24)
--- NOTE | 2017-10-03 09:24 | PDOC PROGRESS REPORT ---
Subjective-OB Progress Note for:: 10/03/17 Physical Exam (OB) Vital Signs: Temp Pulse Resp BP Pulse Ox 97.5 F 70 15 110/69 99 10/03/17 07:24 10/03/17 07:24 10/03/17 07:24 10/03/17 07:24 10/03/17 07:24 Intake & Output 10/02/17 10/03/17 10/04/17 06:59 06:59 06:59 Weight 98.7 kg - Lochia Lochia Amount: Small 10-25 ml Lochia Color: Rubra/Red - Abdomen Description: Tender, Soft Hernia Present: No Bowel Sounds: Normoactive Flatus Presence: Present Stool: Yes Fundal Description: Firm, Midline Fundal Height: u/u - u/2 Objective-Diagnostic Laboratory: 10/03/17 08:52 10/01/17 14:26 10/02/17 10/03/17 10/03/17 09:17 06:09 08:52 WBC 19.9 H D 11.5 H 11.1 H RBC 3.80 3.65 L 3.77 Hgb 11.6 L 11.3 L 11.6 L Hct 33.8 L 32.6 L 34.0 L MCV 89 89 90 MCH 30.4 31.0 30.8 MCHC 34.2 34.8 34.1 RDW 13.2 13.2 13.6 Plt Count 136 L 132 L 141 L Seg Neutrophils % 80.1 H 71.8 Lymphocytes % 9.5 L 19.9 Monocytes % 9.5 7.1 Eosinophils % 0.1 0.9 Basophils % 0.8 0.3 Absolute Neutrophils 15.9 H 8.0 Absolute Lymphocytes 1.9 2.2 Absolute Monocytes 1.9 H 0.8 Absolute Eosinophils 0.0 0.1 Absolute Basophils 0.2 0.0
[2017-10-03] MEDS: FERROUS SULFATE 325 MG TABLET PO SCH ×2 (09:25→18:04)
[2017-10-04] MEDS: IBUPROFEN 800 MG TABLET PO SCH ×2 (05:38→14:36)
--- NOTE | 2017-10-04 08:43 | PDOC PROGRESS REPORT ---
Subjective-OB Progress Note for:: 10/04/17 Subjective: Ready for discharge. Physical Exam (OB) Vital Signs: Temp Pulse Resp BP Pulse Ox 98.0 F 67 18 118/67 98 10/04/17 07:13 10/04/17 07:13 10/04/17 07:13 10/04/17 07:13 10/04/17 07:13 Intake & Output 10/03/17 10/04/17 10/05/17 06:59 06:59 06:59 Intake Total 600 Balance 600 - Lochia Lochia Amount: Small 10-25 ml Lochia Color: Rubra/Red - Abdomen Description: Soft, Round Hernia Present: No Bowel Sounds: Normoactive Flatus Presence: Present Stool: No Fundal Description: Firm, Midline Fundal Height: u/u - u/2 Objective-Diagnostic Laboratory: 10/03/17 08:52 10/01/17 14:26 10/03/17 08:52 WBC 11.1 H RBC 3.77 Hgb 11.6 L Hct 34.0 L MCV 90 MCH 30.8 MCHC 34.1 RDW 13.6 Plt Count 141 L Seg Neutrophils % 71.8 Lymphocytes % 19.9 Monocytes % 7.1 Eosinophils % 0.9 Basophils % 0.3 Absolute Neutrophils 8.0 Absolute Lymphocytes 2.2 Absolute Monocytes 0.8 Absolute Eosinophils 0.1 Absolute Basophils 0.0
--- NOTE | 2017-10-04 08:54 | PDOC DISCHARGE SUMMARY ---
Final Diagnosis Discharge Date: 10/04/17 - Final Diagnosis (1) Gestational hypertension Is this a current diagnosis for this admission?: Yes (2) Gestational proteinuria Is this a current diagnosis for this admission?: Yes (3) Obstetrical laceration, second degree Is this a current diagnosis for this admission?: Yes (4) Polyhydramnios Is this a current diagnosis for this admission?: Yes (5) Vaginal delivery Is this a current diagnosis for this admission?: Yes Discharge Data - Discharge Medication Home Medications: Pnv 102/Iron/Folate 1/Dss/Dha [Vitafol Fe+ Docusate Combo Pck] 1 tab PO DAILY Gestational Age: 39.5 wks Reason(s) for Admission: Induction of Labor Procedures: Ultrasound Intrapartum Procedure(s): Spontaneous Vaginal Delivery Complication(s): Laceration-Vaginal Laceration-Degree: 2nd - [place] Data Baby 1 Male at 1 minute: 7 at 5 minutes: 9 Weight: 3.714 kg Home with Mother: Yes Complications: No - Diagnosis Test Laboratory: Temp Pulse Resp BP Pulse Ox 98.0 F 67 18 118/67 98 10/04/17 07:13 10/04/17 07:13 10/04/17 07:13 10/04/17 07:13 10/04/17 07:13 10/01/17 10/01/17 10/02/17 13:41 14:26 09:17 RBC 4.26 3.80 Hgb 13.1 11.6 L Hct 37.8 33.8 L Urine Opiates Screen NEGATIVE 10/03/17 10/03/17 06:09 08:52 RBC 3.65 L 3.77 Hgb 11.3 L 11.6 L Hct 32.6 L 34.0 L Urine Opiates Screen - Discharge information/Instructions Discharge Activity: Activity As Tolerated, Energy Conservation, Pelvic Rest, Slowly Increase Activity, No tub bath Discharge Diet: Regular Disposition: HOME, SELF-CARE Follow up with: [facility] in: 4, Weeks
[2017-10-04] MEDS: FAMOTIDINE 20 MG TABLET PO SCH (09:42)
[2017-10-04] MEDS: DOCUSATE SODIUM 100 MG CAPSULE PO SCH ×2 (09:42→19:16)
[2017-10-04] MEDS: PRENATAL VITAMIN W DHA CAPSULE PO SCH (09:42)
[2017-10-04] MEDS: SENNOSIDES/DOCUSATE 8.6-50 MG 1 EACH TABLET PO SCH (09:43)
[2017-10-04] MEDS: FERROUS SULFATE 325 MG TABLET PO SCH ×2 (09:43→19:16)
[2017-10-04 11:54] VITALS: BP 115/64
== END 2017-10-04 19:17 | disposition home or self-care (01) | DRG 775 ==
LOC: LR 13:47 → 2S 10-02 04:21
PROVIDERS: ADMIT Student in an Organized Health Care Education/Training Program; ATTEND Student in an Organized Health Care Education/Training Program
PROC: 10E0XZZ Delivery of Products of Conception, External Approach (ICD-10-PCS; principal; 2017-10-01)
PROC: 0KQM0ZZ Repair Perineum Muscle, Open Approach (ICD-10-PCS; 2017-10-01)
PROC: 4A1HXCZ Monitoring of Products of Conception, Cardiac Rate, External Approach (ICD-10-PCS; 2017-10-01)
PROC: 0U7C7ZZ Dilation of Cervix, Via Natural or Artificial Opening (ICD-10-PCS; 2017-10-01)
DX: O14.04 Mild to moderate pre-eclampsia, complicating childbirth (principal); O77.0 Labor and delivery complicated by meconium in amniotic fluid; O76 Abnormality in fetal heart rate and rhythm complicating labor and delivery; O70.1 Second degree perineal laceration during delivery; O40.3XX0 Polyhydramnios, third trimester, not applicable or unspecified; Z3A.39 39 weeks gestation of pregnancy; Z37.0 Single live birth
CPT/HCPCS: 36415; 80053; 80307; 81001; 83615; 84550; 85025; 85027; 86850; 86900; 86901; 94760; C1726; J0295; J2590; J3010; J3490